=== PATIENT | male | born 1980 | race Caucasian/White ===

== ENCOUNTER 2021-12-20 10:45 | Day surgery (SDC) | payer BC ==
--- NOTE | 2021-12-20 09:49 | HP ---
DATE OF SURGERY: 12/20/2021 HISTORY OF PRESENT ILLNESS: The patient is a 41-year-old the last two to three months occasional pain, had a bulge mid-abdomen. He had prior appendectomy, cholecystectomy and developed a hernia. He is having pain in his mid-abdomen at this time, consider repair. PAST MEDICAL HISTORY: He denies any chronic illnesses. PAST SURGICAL HISTORY: Cholecystectomy. Appendectomy. MEDICATIONS: Adipex. ALLERGIES: NKDA. FAMILY HISTORY: Negative. SOCIAL HISTORY: No smoking. REVIEW OF SYSTEMS: Fourteen systems reviewed. No chest pain or palpitations. Other systems negative or noncontributory as above and per preadmission questionnaire. PHYSICAL EXAMINATION: GENERAL: No acute distress. HEENT: Sclerae nonicteric. NECK: No JVD. CHEST: Equal excursion, nonlabored breathing. CVS: Regular rate and rhythm. ABDOMEN: Soft. No peritoneal signs. He does have incarcerated hernia. I feel he probably has more than one hernia in this area, likely weakness from his prior incisions from his laparoscopic surgery in the past and small defect towards the umbilical area. EXTREMITIES: No significant edema. NEURO: Alert, oriented, moving extremities symmetrically. RECTAL: Deferred timed to endoscopy exam. PSYCH: Appropriate mood and affect. IMPRESSION: Given his incarcerated ventral hernia, it was felt he would benefit from repair. Discussed options open versus laparoscopic-assisted. I feel to minimize recurrence risk, I feel laparoscopic-assisted approach would be the best open. Explained the risk in detail but not limited to bleeding or infection, risk of bowel injury or perforation, risk of trocar injury or hernia, risk of aches, pains, burning or numbness possibly rat exterminator or chronic in nature, risk of hernia recurrence, risk of mesh infection possibly requiring removal, risk of hematoma or seroma formation, remote risk of mesh fracture or failure possibly creating issue with the viscera or other structures, possibly requiring other procedures or ongoing morbidities, general risk of anesthesia, deep vein thrombosis, pulmonary embolism, pneumonia, possible need for open procedure, overall risk of hernia recurrence possibly requiring other procedures. He understands and agrees to the planned procedure, will proceed with laparoscopic-assisted repair of incarcerated ventral hernia with mesh possible open.
[~2021-12-20 10:45] MED LIST: Lactated Ringers 1,000 ML IV ONE; Sensorcaine 0.25% 10 ML ONE
[2021-12-20] MEDS ORDERED: KEFZOL 1 GM** 3 G in Sodium Chloride 0.9% 50 ML 50 ML IV SCH (11:30)
[2021-12-20] MEDS ORDERED: Lactated Ringers 1,000 ML IV SCH (11:30)
[2021-12-20] MEDS ORDERED: Lactated Ringers 1,000 ML IV ONE (11:39)
[2021-12-20] MEDS ORDERED: SUBLIMAZE 250 MCG/5 ML ONE (13:26)
[2021-12-20] MEDS ORDERED: DIPRIVAN 200 MG/20 ML IV ONE ×2 (13:27→13:32)
[2021-12-20] MEDS ORDERED: TORAdol 30 mg Injection ONE (13:27)
[2021-12-20] MEDS ORDERED: Zemuron 100 MG/10 ML ONE (13:27)
[2021-12-20] MEDS ORDERED: Zofran 4 MG/2 ML VIAL ONE (13:27)
[2021-12-20] MEDS ORDERED: BRIDION 200MG/2ML IV ONE (13:27)
[2021-12-20] MEDS ORDERED: Xylocaine-Mpf 2% 5 Ml Vial ONE (13:27)
[2021-12-20] MEDS ORDERED: Decadron 4 MG INJ ONE ×2 (13:27→14:24)
[2021-12-20] MEDS ORDERED: Marcaine 0.5%/Epinephrine 10 ML ONE (14:24)
[2021-12-20 15:24] LABS: Appearance SLIGHTLY CLOUDY (CLEAR); Bilirubin NEGATIVE (NEGATIVE); Blood NEGATIVE Ery/ul (0-5); Glucose NEGATIVE (NEGATIVE); Ketones SMALL (NEGATIVE); Leukocyte Esterase NEGATIVE (NEGATIVE); Mucus MANY /HPF (NEGATIVE); Nitrite NEGATIVE (NEGATIVE); Protein,Urine Dip 30 (Negative); RBC 0-2 /HPF (0-2); Urobilinogen NEGATIVE mg/dL (0-1)
[2021-12-20] MEDS ORDERED: SUBLIMAZE 100 MCG/2 ML ONE (15:27)
[2021-12-20] MEDS ORDERED: Hydromorphone 1 mg/ml Injection ONE (15:27)
[2021-12-20 15:40] LABS: Bacteria NONE SEEN /HPF (NEGATIVE)
[2021-12-20 16:31] VITALS: PULSE 90; O2SAT 93
[2021-12-20 17:04] VITALS: BP 175/94
--- NOTE | 2021-12-21 09:22 | OP ---
SURGERY DATE/TIME: 12/20/2021 1328 PREOPERATIVE DIAGNOSIS: Incarcerated ventral hernia. POSTOPERATIVE DIAGNOSIS: Incarcerated ventral hernia. PROCEDURE: Laparoscopic repair of incarcerated ventral hernia with mesh. SURGEON: Dr. Andrew Melgoza. ANESTHESIA: General. ESTIMATED BLOOD LOSS: Minimal. INDICATIONS: As noted above. Risks and benefits explained in detail and not limited to and consent obtained. DESCRIPTION OF PROCEDURE AND FINDINGS: The patient is taken to the operating room. General anesthesia induced. Abdomen prepped and draped in usual sterile fashion. After official time out and no disagreement with planned procedure, a transverse incision made upper quadrant Veress needle inserted tested with saline. Pneumoperitoneum accomplished opening pressure 0 to 15. A 5 mm bladeless port and camera inserted without difficulty followed by left mid abdomen 5 mm port, left lower quadrant 5 mm port and a right mid abdomen 5 mm port all under direct vision of the camera. There is no evidence of any intra-abdominal injury secondary to trocar insertion or Veress needle placement. He had incarcerated omentum and preperitoneal fat up in ventral hernia. There is an old incision there he had in the past. The preperitoneal space carefully entered with the aid of a LigaSure device. It is carefully dissected circumferentially around the hernia allowing the preperitoneal fat and omentum to be slowly and carefully mobilized out of the incarcerated hernia. It took some time but was slowly and carefully accomplished. Once this is accomplished, the hernia defect carefully measured with aid of a spinal needle. It was felt to allow for adequate overlap in all directions once closing the defect back to the midline. It was felt the size [address] mesh was the most appropriate size mesh to use. The mesh is carefully tacked in four quadrant with 0 Ethibond and strap was removed and 0 Vicryl placed in the center, to be able to center the mesh. Once this was done there was a 1 cm incision made below the defect. Dissection carried down to the level of the fascia. The suture passer was then used to place #1 to bring the attenuated fascia back to the midline prior to securing the mesh. These sutures were tagged at this point with a 12 port carefully placed through the defect. The mesh was carefully wet and rolled and inserted into the abdomen carefully under direct vision of the camera. The port was removed. #1 Vicryl was used to transfix the mesh back to the midline with the suture passer used to pull and center the Vicryl up on the circular [address] mesh this is pulled up and centered. Four stab wounds were made in the four quadrants pulling the 0 Ethibond transfixing the mesh transfascially with 0 Ethibond. Once this was accomplished, the capture Tacker was used about 1 cm apart around the periphery with an additional tack placed centrally to avoid space for seroma to form. The mesh is lying nice and flat in a tension-free manner. This was all done with the suture transfixer and mesh placement was all done with pressure having been turned down to 8 to avoid distortion of the abdominal wall. The mesh lying nice and flat in tension-free manner. There is no evidence of any issues. Pneumoperitoneum decompressed. Ports removed. Skin incisions closed with 4-0 Vicryl at the port site where the posterior incarcerated hernia had been and then tacked back down towards the fascia to reduce the space as much as possible. Skin incision closed with 4-0 Vicryl. Anesthesia applied tap blocks. The patient tolerated the procedure well. There were no immediate complications. Sterile dressing, pressure dressing as well as abdominal binder. The patient tolerated the procedure well. There were no immediate complications. He will be transferred to the recovery room in stable condition after tap blocks.
== END 2021-12-20 17:00 | disposition home or self-care (01) ==
LOC: SDC 10:45
PROVIDERS: ATTEND Surgery
DX: K43.6 Other and unspecified ventral hernia with obstruction, without gangrene (principal)
CPT/HCPCS: 49653; 64488; 76937; 76942; 81001; 87086; C1781; J0690; J1100; J1170; J1885; J2405; J2704; J3010; L0625